=== PATIENT | female | born 1965 | race Caucasian/White ===

== ENCOUNTER → 2017-09-14 21:31 | Outpatient (CLI) | payer SELFPAY ==
[2017-09-14 22:07] LABS: ALB/GLOB Ratio 1.2 RATIO (0.9-2.4); AST(SGOT) 17 U/L (15-37); Alanine Aminotransfer ALT/SGPT 23 U/L (13-56); Albumin, Serum 4.2 g/dL (3.2-5.0); Alkaline Phosphatase 74 U/L (45-117); Anion Gap 9 (5-15); BUN 19 mg/dL (7-18); BUN/Creat Ratio 20.5 RATIO (10-20); Calcium,Total 9.6 mg/dL (8.5-10.1); Chloride 107 mmol/L (98-107); Cholesterol 236 mg/dL (200); Creatinine, Serum 0.93 mg/dL (0.55-1.02); EST Glomerular Filtration Rate 67 mL/min (>60); Est Glom Filt Rate - Afr Amer 81 mL/min (>60); Globulin 3.6 g/dL (2.2-4.2); Glucose 82 mg/dL (74-106); High Density Lipoprotein 77 mg/dL; Potassium 4.2 mmol/L (3.5-5.1); Protein, Total 7.8 g/dL (6.4-8.2); Sodium Level 142 mmol/L (136-145); Triglycerides 169 mg/dL; Very Low Density Lipoprotein 34 mg/dL (5-40)
== END ==
PROVIDERS: Visit Provider Nurse Practitioner
DX: Z00.00 Encounter for general adult medical examination without abnormal findings (principal)
CPT/HCPCS: 80053; 80061

== ENCOUNTER → 2020-12-01 | Outpatient (CLI) | payer OTHER, SELFPAY ==
[2020-12-01 22:08] LABS: Absolute Lymphocyte Count 1.91 X10^3/uL (0.83-4.51); Absolute Neutrophil Count 5.2 X10^3/uL (2.0-7.7); Basophil# 0.08 X10^3/uL; Eosinophil# 0.29 X10^3/uL; Eosinophils% 3.6 % (0-5); Hemoglobin 14.4 g/dL (12.0-15.0); Lymphocyte # 1.91 X10^3/ul (0.83-4.51); Lymphocyte % 23.6 % (19-41); Mean Corp Hgb Conc 33.5 g/dL (32-36); Mean Corpuscular Hgb 33.3 pg (27.0-32.0); Mean Corpuscular Volume 99.3 fL (81-99); Mean Platelet Vol. 9.2 fl (6.2-12.0); Monocyte# 0.64 X10^3/uL; Monocyte% 7.9 % (0-10); NRBC Flagged by Analyzer 0 % (0-5); Neutrophil # 5.15 X10^3/uL (2.7-7.7); Neutrophil % 63.7 % (47-70); Platelet Count 257 K/mm3 (150-450); RBC Distribution Width CV 12.4 % (11.6-14.6); RBC Distribution Width SD 45.9 fl (35.1-43.9); Red Blood Count 4.33 M/mm3 (4.2-5.4); White Blood Count 8.1 K/mm3 (4.4-11.0)
[2020-12-01 22:37] LABS: ALB/GLOB Ratio 1.1 RATIO (0.9-2.4); AST(SGOT) 15 U/L (15-37); Alanine Aminotransfer ALT/SGPT 29 U/L (13-56); Albumin, Serum 3.7 g/dL (3.2-5.0); Alkaline Phosphatase 79 U/L (45-117); Anion Gap 7 (5-15); BUN 17 mg/dL (7-18); BUN/Creat Ratio 17.1 RATIO (10-20); CRP < 2.90 mg/L (0.0-3.0); Calcium,Total 9.1 mg/dL (8.5-10.1); Chloride 108 mmol/L (98-107); Creatinine, Serum 0.99 mg/dL (0.55-1.02); EST Glomerular Filtration Rate 61 mL/min (>60); Est Glom Filt Rate - Afr Amer 74 mL/min (>60); Globulin 3.4 g/dL (2.2-4.2); Glucose 108 mg/dL (74-106); Potassium 3.7 mmol/L (3.5-5.1); Protein, Total 7.1 g/dL (6.4-8.2); Sodium Level 142 mmol/L (136-145); Thyroid Stim Hormone (TSH) 1.75 uIU/mL (0.358-3.74)
== END | disposition home or self-care (01) ==
PROVIDERS: PCP Nurse Practitioner; Visit Provider Nurse Practitioner
DX: M25.412 Effusion, left shoulder (principal); R59.1 Generalized enlarged lymph nodes
CPT/HCPCS: 80053; 84443; 85025; 86140

== ENCOUNTER → 2020-12-13 12:32 | Outpatient (CLI) | payer OTHER, SELFPAY ==
--- NOTE | 2020-12-13 12:40 | US_ITS ---
STUDY: SUPERFICIAL ULTRASOUND - SUPERIOR AND POSTERIOR ASPECT OF THE LEFT SHOULDER. REASON FOR EXAM: Female, 55 years old. Mass L posterior and top of shoulder region TECHNIQUE: A superficial ultrasound was performed with real-time and static granger-scale imaging. COMPARISON: None. FINDINGS: Imaging of the palpable timeout was obtained. No solid or cystic masses seen. US/Ext Non Vasc Limited/Soft Tiss IMPRESSION: No cystic or solid mass is seen. Electronically Signed: Wes Ramos MD at 15:29 EST , Service support ,
== END ==
PROVIDERS: PCP Nurse Practitioner; Referring Provider Nurse Practitioner; Visit Provider Nurse Practitioner
DX: R22.32 Localized swelling, mass and lump, left upper limb (principal)
CPT/HCPCS: 76882

== ENCOUNTER → 2020-12-29 10:25 | Outpatient (CLI) | payer OTHER, SELFPAY ==
--- NOTE | 2020-12-29 10:26 | MRI_ITS ---
ACR Level 3 findings have been noted. An addendum which confirms receipt of the report will follow. STUDY: MR CHEST WITH T WITHOUT CONTRAST (ATTENTION LEFT TRAPEZIAL AREA) REASON FOR EXAM: Soft tissue mass in left trapezial area for one month. TECHNIQUE: Standardized fat and water weighted pulse sequences were obtained in all 3 orthogonal planes, pre-and post contrast administration. 14ML IV DOTAREM was administered for the contrast portion of the examination. COMPARISON: Ultrasound images 12/13/2020. FINDINGS: There is mild prominence of the subcutaneous fat at the superior aspect of the distal trapezius muscle between the skin markers (T1 coronal images 4, 5), suggestive of a superficial nonencapsulated lipoma. There is no abnormal contrast enhancement. Normal visualized trapezius and deltoid muscles. Normal visualized muscles of the rotator cuff. There is acromioclavicular arthrosis with mild hypertrophic changes and bone edema (inversion recovery coronal images 15-17). Normal glenohumeral joint and visualized proximal humerus. There is an enlarged axillary lymph node (T2 sagittal images 4, 5; inversion recovery coronal images 4-6) measuring 1.9 cm in length. MRI/Chest W/WO Contrast IMPRESSION: Prominence of subcutaneous fat at the superior aspect of the distal trapezius muscle suggestive of a superficial nonencapsulated lipoma. Enlarged axillary lymph node. Acromioclavicular arthrosis. Electronically Signed: Tyrell Schumacher MD at 13:28 EST Tel , Service support ,
== END ==
PROVIDERS: PCP Nurse Practitioner; Referring Provider Surgery; Visit Provider Surgery
DX: R22.30 Localized swelling, mass and lump, unspecified upper limb (principal)
CPT/HCPCS: 71552; A9575

== ENCOUNTER 2021-01-17 10:21 | Day surgery (SDC) | payer OTHER, SELFPAY ==
--- NOTE | 2021-01-17 | CYST_PTH ---
PATIENT: NORBERT VALLES LOC: [facility] [place] U#:[id number] AGE/SX: 55/F ROOM: RE01/17/[address]: Dr. Florencio Parrish MD : 1965 BED: DIS: 01/17/2021 SPEC #: [id number] RECD: 01/17/21 14:59 STATUS: ANITRA TURNER #: [id number] FRANK: 01/17/21 00:[address]: Florencio Parrish DEPT: SURGICAL PATHOLOGY RECD BY: Norbert Serna ENTERED: 01/18/21 10:18 SP TYPE: Cyst OTHR DR: Maria Antonia Acuna, [employer] TOP HELPER-C Tissues: CYST Procedures: Surgery Specimen Level III HEADER OPERATION: Excisional biopsy axillary mass PRE-OP DIAGNOSIS: Mass of left axilla TISSUE SUBMITTED: Left axillary sebaceous cyst MICROSCOPIC DIAGNOSIS Left axillary sebaceous cyst, excision: Epidermal inclusion cyst. AM:hua 01/19/2021 MICROSCOPIC DESCRIPTION Slides are reviewed. GROSS DESCRIPTION Received in fixative is one container labeled with the patient's name and designated left axillary sebaceous cyst. The specimen consists of an ovoid fragment of yellow-monet tissue measuring 2 cm in diameter. The cut surfaces reveal friable white-monet material. Truck Mechanic sections are submitted in one cassette. / AM:hua 01/18/21 TC:5 CPT: 60845
[2021-01-17 11:09] VITALS: BP 101/73; PULSE 85; RESP 16; TEMP 36.8; O2SAT 99; BMI 29.8
[2021-01-17] MEDS: Lactated Ringers 1,000 ML 15 ML IV (11:32)
--- NOTE | 2021-01-17 12:50 | PCM.HP.BLA ---
History and Physical Date of Admission: 01/17/21 Date of Service: 01/10/21 MR#:[id number]:[id number]: NORBERT VALLES [facility] #:[id number]:1965 Provider:Dr. Florencio Parrish, MDAge/Sex: 55/F Location:[facility] [place].WSAStatus:Signed Intake Intake Visit Reasons: DISCUSS EXCISONAL BIOPSY Chief Complaint: check LN, discuss surgery Folder Operator Required: No Is patient in pain?: No Allergies buproprion Adverse Reaction (Severe, Uncoded 09/14/17 16:21) crying and depressed morphine Adverse Reaction (Intermediate, Uncoded 09/14/17 16:07) Swelling Medications NK 09/14/17 [History Confirmed 01/10/21] Is last menstrual period known: No Post menopausal: Yes Patient : No PFSH Medical History Diverticulitis Fracture of right foot GERD (gastroesophageal reflux disease) Ovarian cyst Recurrent UTI Surgical History H/O LEEP History of hysterectomy [place] teeth extracted Family History Mother Colon cancer Breast cancer Aunt Breast cancer Father Heart disease Other Diabetes High cholesterol Hypertension Migraines Social History Smoking Status: Former smoker Tobacco: How many years used: 30 how long ago did patient quit smokin second hand exposure: Yes alcohol intake: current alcohol intake frequency: a few times a month Alcohol type: wine substance use type: does not use HPI HPI HPI: NORBERT VALLES is a 55 F who presents to the office today for follow-up of a surgical consultation regarding a left shoulder lump. I attempted to perform a bedside ultrasound exam of this area in office but was not able to obtain a clear view and therefore ordered a MRI of this area. This MRI showed evidence of a nonencapsulated lipoma in this area but also detected a left axillary lymph node/mass. It is for this latter issue that the patient presents today. She states this has been present for approximately the last 10 years. It causes her no pain. She denies any significant drainage, however, she states you can pop it. She recalls doing this approximately 2 times before. The output is white and cheesy. She denies any difficulties with this becoming red and inflamed but does state it creates difficulty with shaving her underarms. She has no history of sebaceous cysts. She has no swellings or enlarged lymph nodes elsewhere. She has no personal history of breast lesions or breast cancer, however, both her mother and maternal aunt were diagnosed with breast cancer (she estimates this was in their 60s). She also states that her last mammogram was approximately 2 years ago. This was done at [facility]. She has not had a recent clinical breast exam. She has gone through menopause (at the age of 29 went through hysterectomy but both ovaries were intact). She denies any use of hormonal replacements. She has no children and never had a . ROS General General: No weight change, appetite, fatigue, colon cancer, breast cancer or weakness HEENT HEENT: No difficulty swallowing, eye injury, eye surgery, swollen glands or hoarseness Endo Endocrine: No thyroid disease, diabetes mellitus, thyroid cancer, Hair loss, heat intolerance or cold intolerance Skin Skin: No rash or changing moles Breast Breast: No left breast lump, right breast lump, nipple discharge, breast pain, abnormal mammogram, abnormal US or breast enlargement Musc Musculoskeletal: No back problems, arthritis, rheumatoid arthritis, gout or joint pain Cardio Cardiovascular: No murmur, pacemaker, heart disease, atrial fibrillation, high blood pressure, heart attack, heart stent, palpitations, shortness of breat with exertion or chest pain Psych Psychiatric: No depression, anxiety or hearing voices Resp Respiratory: No shortness of breath, No sleep apnea, No cough, No COPD, No asthma, No emphysema and No wheezing Gastro Gastrointestinal: No abdominal pain, No nausea or vomiting, No diarrhea, No constipation, No blood in stool, Yes acid reflux, No hemorrhoids, No ulcers, No gallbladder problem and No black,tarry stools Kiran Hematologic: No blood thinners, No blood disorders, No bleeding, No anemia and No blood clots Neuro Neurologic: No system reviewed and no additional complaints, except as documented, No as per HPI, No abnormal gait, No abnormal hearing, No abnormal movements, No abnormal speech, No behavioral changes, No burning sensations, No confusion, No convulsions, No disequilibrium, No dizziness, No localized weakness, No frequent falls, No headache(s), No lack of coordination, No loss of vision, No memory loss, No numbness, No other visual disturbances, No radicular pain, No restless legs, No sensory deficit, No syncope, No tingling, No tremor(s), No weakness and No other Exam Const General: cooperative, healthy appearing, comfortable and no acute distress Nutritional Appearance: average body habitus Orientation: alert, awake and oriented x3 Chest Breast inspection: Other (With nipple inversion on the left) Breast Palpation: Yes normal palpation of the breasts, Yes abnormal palpation of the axilla (Firm, nontender, semimobile~2cm mass left), No supraclavicular and No change in skin Other: With ultrasound examination, identify a 1.5 x 1.9 hypoechoic mass superficially in the subcutaneous layer. There is no significant flow on color Doppler. This would seem most suggestive of a sebaceous cyst. Resp Effort & Inspection: normal respiratory effort Assessment and Plan Assessment and Plan (1) Mass of left axilla: Status: Acute Comment: Is a 55-year-old female who presents with a approximately 2 cm semimobile mass of the left axilla. She states this has been present for the last 10 years. It varies in size and can go down to a very negligible proportion after she pops it. Based on this history and the description of the drainage, mass would seem to be a sebaceous cyst. The sonographic picture obtained through bedside ultrasound would also seem to be more consistent with this than a enlarged lymph node. However, the patient does have a family history of breast cancer and is not up-to-date on her breast screening. See below for further details. A tissue diagnosis is warranted, but if this is a sebaceous cyst, I am afraid that FNA will induce scarring and make any subsequent excision more difficult. Patient is inclined to have it removed as it causes issues with her hygiene. Plan - Dr. Florencio Parrish MD: ?Excisional biopsy of left axillary mass under local MAC (2) Family history of breast cancer in first degree relative: Status: Acute Comment: Is a 55-year-old female who presents with a solitary left axillary mass?by history most consistent with a sebaceous cyst. Patient has a reasonably?strong family history of breast cancer in both her mother and maternal aunt. However, patient is not up-to-date on her mammograms and had become out of date with her clinical breast exams. I find no masses on my exam today, but would like to update her mammograms. Additionally, she has some left nipple inversion but she states this is chronic. As above, we will pursue excision of the left axillary mass. Plan - Dr. Florencio Parrish MD: ?Screening breast mammograms Plan Details Other Orders: Orders: SCRN MAMM (CAD)W/ADAM BILAT Today Coding Level of Care Code Off vis,est,level 4 Diagnoses Mass of left axilla R22.32 Family history of breast cancer in first degree relative Z80.3 I have re-examined the patient. There are no clinical changes since date of exam. Plan to proceed with scheduled excision of left axillary mass under anesthesia.
[2021-01-17] MEDS: Bupivacaine Mpf 0.5% 30 ML VIAL (13:17)
--- NOTE | 2021-01-17 13:48 | PCM.OPRPT ---
Problems Associated Problem List Diagnoses (1) Mass of left axilla: Report of Operation Date of Procedure: 01/17/21 Pre-Operative Diagnosis: Left axillary mass Post-Operative Diagnosis: Left axillary sebaceous cyst Surgery/Procedure Performed:: Excision of left axillary sebaceous cyst under anesthesia Description of Surgical Findings:: ?Well-circumscribed mass with white capsule of the left axilla ?Inadvertent perforation resulted in extrusion sebaceous cyst material Surgeon: Florencio Parrish process controls technician: Angela Garcia process controls technician: Mikey Rizvi Type of Anesthesia: MAC/Supplemental Anesthesiologist: Alen Banegas Estimated Blood Loss (mL): 5 Description of Procedure: After appropriate indication preoperative holding area the patient was brought to the operating room where she was positioned supine on the operating room table. Preoperative antibiotics had been begun in the holding area and were completed prior to initiation of anesthesia. Once patient was appropriately positioned, she underwent induction with MAC anesthesia. The left axilla was then prepped and draped in usual sterile fashion. A formal timeout was conducted from both patient and procedure. A 2 cm incision was made along the skin folds in the hair-bearing area of the axilla directly overlying the mass. This dissection was carried down through the dermal layer and sharp dissection was used to separate the capsule of the mass from the overlying skin taking care to stay directly on the capsule and leave the remaining skin intact. An inadvertent rent was made in the capsule resulting in extrusion of sebaceous cyst contents which were controlled and passed off the field to prevent contamination of the surgical field. Once this dissection was carried about circumferentially, it was amputated from the underlying soft tissue and passed off the field for permanent section. The cavity was irrigated to remove any remaining debris and then hemostasis was obtained with the use of selective electrocautery. Wound was closed in layers with a 3-0 Vicryl followed by 4-0 Monocryl in a subcuticular fashion. Dermabond and OpSite was applied as a dressing. Patient was then awoken from MAC anesthesia and taken to PACU for ongoing recovery. Complications None Admit VTE Documentation VTE Mechan Device Prophylaxis: SCD's Procedures Integumentary 114x: [id number] Exc tr-ext b9+nabil 1.1-2 cm
--- NOTE | 2021-01-17 13:53 | DCINST_ITS ---
Discharge Instructions Diet Discharge Diet: No restrictions Activity Discharge Activity: May Drive and May Shower Ice area for (Minutes): 20 Dressing / Incision Call your doctor if your incision/area has: Sudden Increased Bleeding, Increased Pain/ Swelling, Increased Redness, Foul Smelling Discharge and Swelling at the incision site Change Dressing in: 1 day Cleanse incision/area with: Soap & Water Additional Dressing/Incision Instructions:: Once outer bandages removed okay to leave uncovered Follow Up Care Please Follow Up With: Florencio Parrish MD When: 7 to 10 days postop Test Results: Test results from this visit will be discussed in further detail at your follow-up appointment, if applicable. Discharge Plan Admission Attending Provider: Florencio Parrish Primary Care Provider: Maria Antonia Acuna NP Instructions Patient Instructions: Surgical Biopsy Discharge Orders/Prescriptions Prescriptions: New oxycodone 5 mg capsule 5 mg PO Q6H PRN (Reason: pain) 3 Days Qty: 10 RF: 0 No Action NK RF: 0 Referrals / Follow Up: Maria Antonia Acuna NP, ROUTER OPERATOR PIN-C [Primary Care Provider] - Disposition Disposition (needs filled in before D/C Order can be placed): Home, Self Care
[2021-01-17 13:57] VITALS: BP 101/73; BP 128/81; PULSE 83; RESP 16; TEMP 36.3; O2SAT 100
[2021-01-17 14:00] VITALS: BP 101/73; BP 119/83; PULSE 77; RESP 16; O2SAT 98
[2021-01-17 14:05] VITALS: BP 101/73; BP 129/82; PULSE 71; RESP 16; O2SAT 96
[2021-01-17 14:10] VITALS: BP 101/73; BP 125/85; PULSE 72; RESP 16; O2SAT 100
[2021-01-17 14:30] VITALS: BP 101/73
== END 2021-01-17 14:47 | disposition home or self-care (01) ==
LOC: SDC 10:21 → AC 10:22
PROVIDERS: PCP Nurse Practitioner; Referring Provider Surgery; Visit Provider Surgery
PROC: (CPT 19301; principal; 2021-01-17 13:15)
DX: L72.3 Sebaceous cyst (principal); Z78.0 Asymptomatic menopausal state; Z87.19 Personal history of other diseases of the digestive system; Z87.440 Personal history of urinary (tract) infections; Z87.891 Personal history of nicotine dependence
CPT/HCPCS: 00400; 11402; 87426; 88304; J7120